=== PATIENT | male | born 1990 | race Two or more races ===

== ENCOUNTER 2019-05-26 15:30 | Emergency (ER) | payer OTHER ==
[~2019-05-26] VITALS: Ht 182.9 cm; Wt 108.9 kg
--- NOTE | 2019-05-26 16:07 | NUR ---
DR PHOENIX AT THE BEDSIDE FOR MSE.
[2019-05-26 17:06] VITALS: BP 143/77
== END 2019-05-26 17:07 | disposition home or self-care (01) ==
LOC: ER 15:33
DX: S92.355A Nondisplaced fracture of fifth metatarsal bone, left foot, initial encounter for closed fracture (principal); X58.XXXA Exposure to other specified factors, initial encounter; Y93.89 Activity, other specified; Y92.89 Other specified places as the place of occurrence of the external cause; Y99.8 Other external cause status
CPT/HCPCS: 73630; A4663